=== PATIENT | male | born 2000 | race Caucasian/White ===

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

== ENCOUNTER 2023-03-24 16:48 | Emergency (ER) | payer OTHER, SELFPAY ==
--- NOTE | ~2023-03-24 | XR_ITS ---
EXAM: XR heel LT min 2V DATE: 03/24/2023 17:18 HISTORY: fell 8 feet from a ladder a week ago . COMPARISON: None available. FINDINGS: Normal mineralization. No fracture or dislocation. No lytic or blastic lesion. Joint space s and physes are maintained. No erosion or periosteal change. Soft tissues within normal limits. IMPRESSION: No acute osseous finding in the left heel. Reviewed, dictated and finalized at location K.
--- NOTE | 2023-03-24 17:06 | ED.LOWEXIN ---
HPI - Extremity Injury (Lower) General Chief Complaint: Extremity Injury, Lower Stated Complaint: lt lower extremity injury Time Seen by Provider: 03/24/23 17:06 Source: patient Mode of arrival: ambulatory Limitations: no limitations History of Present Illness HPI Narrative: Patient is a 22-year-old male who presents with left heel pain after falling off ladder 1 week ago. Patient states he landed directly on heel and rolled foot backwards. Patient states he has been using ice and did wrap it 1 day. Patient has not taken any ibuprofen or Tylenol for pain. Denies any swelling or bruising to heal. Has been working daily. Related Data Allergies Allergy/AdvReac Type Severity Reaction Status Date / Time No Known Allergies Allergy Verified 08/27/21 17:53 Review of Systems Review of Systems: All systems reviewed & are unremarkable except as noted in HPI and below Constitutional: Constitutional: Denies body ache(s), Denies chills, Denies fatigue, Denies fever(s), Denies headache(s), Denies malaise and Denies weakness Eyes: Eyes: Denies blurry vision, Denies irritation and Denies loss of vision ENT: Denies otalgia, Denies headache(s), Denies nasal discharge, Denies sinus pain and Denies sore throat Cardiovascular: Cardiovascular: Denies chest pain, Denies irregular heart rhythm and Denies dyspnea Respiratory: Respiratory: Denies dyspnea Gastrointestinal: Gastrointestinal: Denies abdominal pain, Denies melena, Denies hematochezia, Denies diarrhea, Denies nausea and Denies vomiting Musculoskeletal: Musculoskeletal: Denies back pain, Denies myalgias and Reports arthralgias Integumentary/Breasts: Skin/Breast: Denies pruritus and Denies rash Neurologic: Denies headache(s), Denies loss of vision and Denies weakness Psychiatric: Psychiatric: Reports no additional psychiatric complaints Endocrine: Endocrine: Denies fatigue PMFSH Comments At time of signature, agree with nursing past medical, surgical, social and family history. There is no relevant family history pertinent to the presenting complaint. Exam Const: General: cooperative, healthy appearing, comfortable, no acute distress and well nourished Nutritional Appearance: well nourished Orientation/consciousness: patient oriented x3 Limitations: no limitations HENMT: Head: normal to inspection, normocephalic and atraumatic Ears: hearing grossly normal bilaterally and external ears normal Face/Nose/Sinus: Normal external nose present, normal facial exam and face symmetric Face and sinus: normal facial exam and face symmetric Mouth: Yes lip normal Eyes: General: appearance normal, both eyes and all related structures Alignment and Position: alignment normal and position normal Periorbital: periorbital findings normal Eyelids: eyelids normal Pupils: Equal, round and reactive pupils present EOM: EOMs intact bilaterally Neck: Neck: normal visual inspection, full ROM and supple Chest: Chest palpation & inspection: normal inspection of the chest Resp: Effort & Inspection: normal respiratory effort and able to speak in complete sentences Auscultation: clear to auscultation bilaterally Cardio: Rate: regular rate Rhythm: regular rhythm Heart sounds: S1 normal heart sound present and S2 normal heart sound present GI: Inspection: normal to inspection Skin: General skin exam: normal color and no rashes or lesions noted Neuro: General: patient oriented x3 and moves all extremities Cranial nerves: Yes Equal, round and reactive pupils present Speech: normal speech Gait exam (Neuro): Normal gait present Extrem: General: normal to inspection, full ROM and no edema Left lower extremity: ankle Details: normal ROM and achilles tendon exam abnormal Details: tenderness to palpation; no step-off noted and Rosado Test normal; no swelling and no ecchymosis and foot Details: normal capillary refill, normal to inspection, tenderness Location: of the calcaneus Details: point tendern
[2023-03-24 17:07] VITALS: BP 145/93; PULSE 93; RESP 18; TEMP 36.5; O2SAT 100
== END 2023-03-24 18:14 | disposition home or self-care (01) ==
PROVIDERS: Emergency Provider Nurse Practitioner Family
DX: M76.62 Achilles tendinitis, left leg (principal)
CPT/HCPCS: 73650; 99213; G0463

== ENCOUNTER 2023-10-23 12:28 | Emergency (ER) | payer OTHER, SELFPAY ==
--- NOTE | ~2023-10-23 | XR_ITS ---
EXAMINATION: XR hand RT min 3V DATE: 10/23/2023 12:44 INDICATION: Right hand pain. Injury. TECHNIQUE: 3 views of right hand were obtained. COMPARISON: Right knee radiographs 05/13/2013 FINDINGS: There is an oblique intra-articular fracture of palmar radial base of fifth metacarpal. The distal fracture fragment demonstrates 2 mm posterior ulnar displacement. Joint spaces are normal. IMPRESSION: 1. Intra-articular oblique fracture of base of fifth metacarpal. Reviewed, dictated and finalized at location A.
[2023-10-23 12:36] VITALS: BP 133/84; PULSE 97; RESP 18; TEMP 36.6; O2SAT 99
--- NOTE | 2023-10-23 12:36 | ED.UPPEXIN ---
HPI - Extremity Injury (Upper) General Chief Complaint: Extremity Injury, Upper Stated Complaint: Right Hand Injury Time Seen by Provider: 10/23/23 12:42 Source: patient, RN notes reviewed and old records reviewed Mode of arrival: ambulatory Limitations: no limitations History of Present Illness HPI narrative: 22 year old male presents to [facility] care with complaints of getting excited after meeting a personal goal while lifting weight last night and he slapped his dorsal right hand down on the floor and now having pain to the dorsal hand along 4th and 5th metacarpals. Patient has been applying ice to his right hand since occurred with noted swelling to the dorsal aspect of right hand. Patient is right hand dominant MD complaint: injury to: right and hand Onset (ago): day(s) (last night) Other injuries: none Severity scale (1-10): 5 Treatments prior to arrival: cold therapy Related Data Allergies Allergy/AdvReac Type Severity Reaction Status Date / Time No Known Allergies Allergy Verified 10/23/23 12:38 Review of Systems Review of Systems: CONSTITUTIONAL: Denies fever, chills, or sweats. EYES: Denies visual changes, redness, or discharge. ENT: Denies rhinorrhea, congestion, sore throat, or otalgia. CARDIOVASCULAR: Denies chest pain, palpitations, or edema. RESPIRATORY: Denies cough or dyspnea. GASTROINTESTINAL: Denies abdominal pain, nausea, vomiting, or diarrhea. GENITOURINARY: Denies dysuria or hematuria. SKIN: Denies rash or itching. MUSCULOSKELETAL: Denies back pain,right dorsal hand pain along 5th metacarpal , or myalgia. NEUROLOGIC: Denies headache, numbness, or weakness. PSYCHIATRIC: Denies anxiety or depression. 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 There is no relevant family history pertinent to the presenting complaint Exam Narrative: GENERAL: Well-appearing, well-nourished, and in no acute distress. HEAD: Normocephalic, atraumatic. EYES: PERRLA and EOMI. ENT: Nares clear, no rhinorrhea or epistaxis. Mucous membranes moist. NECK: Supple.no lymphadenopathy CHEST: Clear to auscultation. No respiratory distress.SAO2 99% on room air HEART: Regular rate and rhythm. No murmur heard. Normal peripheral pulses. ABDOMEN: Soft, nontender, nondistended, normal active bowel sounds. EXTREMITIES: Normal range of motion. No edema. SKIN: Warm, dry, no rash.Exception noted to swelling of right dorsal hand along the 5th metacarpal with tenderness, nail beds clemente briskly, right radial pulse is strong has limited movement of 5th finger right hand NEURO: No focal deficits. Alert and oriented x3. Course Course Emergency Course: Patient is aware of diagnosis, understands and agrees to treatment plan.? Anticipatory guidance given.? Patient agrees to follow-up as directed and is aware of reasons to seek care at the emergency department. Portions of this record may have been created with voice recognition software Level of Care: Express Care Visit Vital Signs Vital signs: Vital Signs Temperature 36.6 C 10/23/23 12:36 Pulse Rate 97 10/23/23 12:36 Respiratory Rate 18 10/23/23 12:36 Blood Pressure 133/84 10/23/23 12:36 Pulse Oximetry 99 10/23/23 12:36 Oxygen Delivery Room Air 10/23/23 12:36 Temperature 36.6 C 10/23/23 12:36 Pulse Rate 97 10/23/23 12:36 Respiratory Rate 18 10/23/23 12:36 Blood Pressure 133/84 10/23/23 12:36 Pulse Oximetry 99
== END 2023-10-23 13:38 | disposition home or self-care (01) ==
PROVIDERS: Emergency Provider Registered Nurse
DX: S62.316A Displaced fracture of base of fifth metacarpal bone, right hand, initial encounter for closed fracture (principal); W22.09XA Striking against other stationary object, initial encounter
CPT/HCPCS: 29125; 73130; 99214; A4565; G0463

== ENCOUNTER 2023-11-06 09:37 | Outpatient (CLI) | payer OTHER, SELFPAY ==
--- NOTE | ~2023-11-06 | CT_ITS ---
EXAMINATION: CT hand RT wo con DATE: 11/06/2023 09:51 INDICATION: Displaced intra-articular fracture of fifth metacarpal. TECHNIQUE: Computed tomography (CT) of the right hand was performed without intravenous contrast. Aut omated exposure control and iterative reconstruction technique were employed. The dose-length product was 561.87 mGy-cm. COMPARISON: Right hand radiographs 10/23/2023 FINDINGS: There is a comminuted intra-articular fracture of radial base of fifth metacarpal. The main distal fracture fragment demonstrates 2 mm ulnar displacement. Other joint spaces are normal. IMPRESSION: 1. Comminuted intra-articular fracture of base of fifth metacarpal. Reviewed, dictated and finalized at location A.
== END 2023-11-06 09:38 ==
LOC: GOSHIMG 09:38
PROVIDERS: PCP Physician Assistant Surgical; Visit Provider Physician Assistant Surgical
DX: S62.316A Displaced fracture of base of fifth metacarpal bone, right hand, initial encounter for closed fracture (principal); X58.XXXA Exposure to other specified factors, initial encounter
CPT/HCPCS: 73200